=== PATIENT | female | born 1985 | race Caucasian/White ===

== ENCOUNTER 2018-12-05 14:21 | Day surgery (SDC) | payer OTHER ==
[2018-12-05 15:20] VITALS: BMI 28.1
[2018-12-05 15:22] VITALS: BP 128/85; TEMP 99.2
--- NOTE | 2018-12-05 18:02 | PDOC.FPRHP ---
- Allergies/Adverse Reactions Allergies Allergy/AdvReac Type Severity Reaction Status Date / Time No Known Allergies Allergy Unverified 12/05/18 15:07 - Home Medications Medication Instructions Recorded Confirmed Type Lactobacillus Acidophilus 1 capsule PO DAILY 12/05/18 12/05/18 History [Probiotic] Vit,Calc76/Iron/Folic 1 tablet PO DAILY 12/05/18 12/05/18 History [Prenatabs Rx Tablet] - History PMHx: PSHx: FHx: Social: - Vital signs BP: [] HR: [] RR: [] Tmax: [] Pox: []% on [] Wt: [] FMR H&P: Upper Level - Plan Date/Time: 12/05/18 1802 I, [], have evaluated this patient and agree with findings/plan as outlined by manager internet retails sales resident. Pertinent changes/additions are listed here.
--- NOTE | 2018-12-05 18:07 | PDOC.FPROB ---
FMR OB H&P: HPI - History of Present Illness Chief Complaint: Vaginal bleeding Indentification: 32 year old at 38.1 wks History of Present Illness: 32 year old at 38.1 wks presents with vaginal bleeding. She states she was using the restroom when she felt like she was leaking fluid. Patient states that when she looked in the toilet, she saw blood. She also notes that she soaked through a pad. The bleeding started at 13:30. Patient endorses recent sexual intercourse, last night. She denies vaginal discharge, contractions. Patient endorses abdominal cramping, similar to how a period feels. Patient endorses movement. Primary Care Physician: Dr. 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 She is on Adderall for ADHD and tested positive for amphetamines on UDS. FMR OB H&P: Medications - Current Home Medications: Medication Instructions Recorded Confirmed Type Lactobacillus Acidophilus 1 capsule PO DAILY 12/05/18 12/05/18 History [Probiotic] Vit,Calc76/Iron/Folic 1 tablet PO DAILY 12/05/18 12/05/18 History [Prenatabs Rx Tablet] Allergies/Adverse Reactions: Allergies Allergy/AdvReac Type Severity Reaction Status Date / Time No Known Allergies Allergy Unverified 12/05/18 15:07 FMR OB H&P: ROS - Review of Systems General: denies: fever/chills, weight/appetite/sleep changes Eyes: denies: vision changes ENT: denies: nasal congestion, sore throat Cardiovascular: denies: chest pain, palpitation, edema Respiratory: denies: cough, congestion, shortness of breath Gastrointestinal: reports: cramping. denies: abdominal pain, nausea, vomiting Genitourinary (Female): reports: vaginal bleeding. denies: dysuria, vaginal pain, contractions Musculoskeletal: denies: pain, stiffness Neurologic: denies: numbness, syncope, weakness Integumentary: denies: itching, rash, lesions Hematologic/Lymphatic: denies: prolonged or excessive bleeding Psychological: denies: depression, anxiety FMR OB H&P: Vital Signs - Maternal Vital signs: Vital Signs - First Documented Temp Pulse Resp BP 99.2 F 103 H 18 128/85 12/05/18 14:42 12/05/18 14:42 12/05/18 14:42 12/05/18 14:42 - Heart Tones Baseline: 130 Variability: moderate Acceleration: present Deceleration: absent Category: category 1 [place] contractions every: Irritability, irregular contractions FMR OB H&P: Physical Exam - Physical Exam General: NAD, awake, alert and oriented HEENT: MMM, grossly normal vision, grossly normal hearing Heart: RRR General: no respiratory distress Abdomen: soft, gravid, non-tender Musculoskeletal: pulses present Neurological: no tremor, no focal deficit Skin: no rash Lymphatic: no unusual bruising or bleeding, no purpura Psychiatric: intact recent and remote memory, good judgement and insight, normal mood and affect - Pelvic Exam Deviation from normal: minimal amount of dark red blood near cervical os and in vagina SVE: closed/thick/high FMR OB H&P: A/P - Problem List (1) Vaginal bleeding during , antepartum Status: Acute Code(s): O46.90 - ANTEPARTUM HEMORRHAGE, UNSPECIFIED, UNSPECIFIED TRIMESTER (2) Term Status: Acute Code(s): Z34.90 - ENCNTR FOR SUPRVSN OF NORMAL , UNSP, UNSP TRIMESTER (3) ADHD Status: Acute (4) Asthma Status: Acute Code(s): J45.909 - UNSPECIFIED ASTHMA, UNCOMPLICATED Disposition: 32 year old at 38.1 wks presents with vaginal bleeding Vaginal bleeding - Term sIUP - No active bleeding on sterile speculum exam - No evidence of pooling to suggest ROM - Recent sexual intercourse which is likely cause - Closed/thick/high, soft, posterior - Hx of placenta previa with documented resolution on 30 wk sono (2.29 cm from os) - Category I strip, no concerns for compromise or distress - Mild amount of cramping, but no abdominal pain, contractions, or firm uterus; low suspicious for abruption - Amnisure not helpful given the vaginal bleeding. TIUP - 38.1 wks - No complications - G1 - Cervix closed; patient not in labor at this time ADHD - On Adderall during , UDS positive Asthma - Avoid hemabate PP Dispo: D/c home with return precautions. Discussion: Date/Time: 12/05/181804 This H&P was discussed with Dr. Mcguire who agrees with the above documentation and plan. Signature: Liyah Johnson, PGY-3 Addendum - Attending - Attending Attestation Date/Time: 12/05/182226 I personally evaluated the patient and discussed the management with Dr. Johnson. I agree with the History, Examination, Assessment and Plan documented above.
== END 2018-12-05 17:30 | disposition home health service (06) ==
LOC: L&D/OP 14:21
PROVIDERS: ATTEND Obstetrics & Gynecology
DX: O46.93 Antepartum hemorrhage, unspecified, third trimester (principal); O99.343 Other mental disorders complicating pregnancy, third trimester; F90.9 Attention-deficit hyperactivity disorder, unspecified type; O99.513 Diseases of the respiratory system complicating pregnancy, third trimester; J45.909 Unspecified asthma, uncomplicated; Z3A.38 38 weeks gestation of pregnancy; Z79.899 Other long term (current) drug therapy

== ENCOUNTER 2018-12-06 22:15 | Inpatient (IN) | payer OTHER ==
[2018-12-06 22:49] VITALS: BMI 28.1
[2018-12-06] MEDS ORDERED: Ibuprofen 800 MG TAB PO PRN (23:13)
[2018-12-06] MEDS ORDERED: NS / Oxytocin 40 units/1000ml 1,000 ML IV PRN (23:13)
[2018-12-06] MEDS ORDERED: hydrALAZINE 20 MG/ML VIAL SLOW IVP PRN (23:13)
[2018-12-06] MEDS ORDERED: Lidocaine 1% (PF) 30 ML VIAL SC PRN (23:13)
[2018-12-06] MEDS ORDERED: Promethazine HCl 25 MG/ML VIAL IM PRN (23:13)
[2018-12-06] MEDS ORDERED: HYDROcodone/Acetaminophen 5/325 mg Tablet PO PRN ×2 (23:13)
[2018-12-06] MEDS ORDERED: Ondansetron PF 4 MG/2 ML Vial IVP PRN (23:13)
[2018-12-06] MEDS ORDERED: Butorphanol Tartrate 1 MG/ML VIAL SLOW IVP PRN (23:13)
--- NOTE | 2018-12-06 23:17 | PDOC.LDHP ---
Labor and Delivery H&P Chief complaint: other (Vag Bleed) HPI: Here for Vag Bleed care: [place] 32 yo G1Po with EDC 12/18/18...38 weeks, with vag bleed yesterday and today. Seen yesterday in L&D. Was closed yesterday, no trauma, passed small clots at home. Good FM, no DM, no HTN Review Of Systems: As per HPI Current gestational age (weeks): 38 Due date: 12/18/18 Dating criteria: last menstrual period Grav: 1 Current complications: none Abnormal US findings: No Current medications: pre- vitamins Previous surgical history: other (Wrists) Allergies/Adverse Reactions: Allergies Allergy/AdvReac Type Severity Reaction Status Date / Time No Known Allergies Allergy Verified 12/06/18 22:46 Social history: none - Physical Exam Vital signs reviewed and normal: yes (139/90...160/90) General: NAD Heart: RRR Lungs: CTAB Abdomen: gravid Extremeties: no edema FHT: category 1 [place] contractions every: Every 3 minutes - Assessment L&D Assessment: term patient in labor (Vag Bleed x 2 days at 38 weeks, PIH with decels...r/o marginal separation) - Plan Plan: admit to L&D, GBS antibiotic prophylaxis, informed consent obtained, anesthesia consult for pain management, other (Possible abruption reviewed, we will keep and likely proceed with IOL. T&C as well. At bedside now. Blood type RH Pos)
--- NOTE | 2018-12-06 23:25 | PDOC.EVN ---
Event Note - Event Note Event Note: Reviewed BPs with Jennifer...will follow for now. may need mag sulfate if persistent
[2018-12-06] MEDS ORDERED: Calcium Gluc 4.6 MEQ/10 ML (100 MG/ML) SLOW IVP PRN (23:30)
[2018-12-06] MEDS ORDERED: Penicillin G Potassium 5 MILL.UNITS in Sodium Chloride 0.9% 100 ML IVPB SCH (23:30)
--- NOTE | 2018-12-06 23:30 | PDOC.EVN ---
Event Note - Event Note Event Note: CX per RN with and Homer in room: / BP 170/94...start Mag. D/W patient
[2018-12-06] MEDS ORDERED: Magnesium Sulfate 20 gm/500 ml 20 GM/500 ML BAG ONE (23:32)
[2018-12-06 23:33] LABS: #Eosinphils 0.3 thou/uL (0.0-0.7); #Neutrophils 7.5 thou/uL (1.40-6.50); %Basophils 0.3 % (0.0-1.0); %Eosinophils 2.8 % (0.0-10.0); %Monocytes 8.5 % (0.0-10.0); %Neutrophils 63.5 % (42.0-75.0); Hemoglobin 13.2 g/dL (12.0-16.0); Mean Corpuscular HGB CONC 34.8 g/dL (32.0-36.0); Mean Corpuscular Hemoglobin 32.2 pg (27.0-31.0); Mean Corpuscular Volume 92.6 fL (78.0-98.0); Mean Platelet Volume 6.6 fL (7.4-10.4); Platelet Count 249 thou/uL (130-400); RBC Distribution Width 11.6 % (11.5-14.5); Red Blood Cell (RBC) Count 4.11 mill/uL (4.20-5.40); White Blood Cell (WBC) Count 11.8 thou/uL (4.8-10.8)
[2018-12-06] MEDS ORDERED: Magnesium Sulfate 20 gm/500 ml 20 GM/500 ML BAG IVPB SCH (23:45)
[2018-12-06] MEDS ORDERED: Magnesium Sulfate 20 GM/WATER 500 ML BAG IVPB SCH (23:45)
[2018-12-06 23:47] LABS: ALT (SGPT) 11 U/L (8-55); AST (SGOT) 16 U/L (5-34); Albumin 3.8 g/dL (3.5-5.0); Alkaline Phosphatase 183 U/L (40-110); Anion Gap 12 mmol/L (10-20); BUN (Urea Nitrogen) 8 mg/dL (7.0-18.7); Bilirubin, Total 0.3 mg/dL (0.2-1.2); Calc. Creatinine Clearance 168 mL/min (70-130); Carbon Dioxide 25 mmol/L (22-29); Chloride 104 mmol/L (98-107); Estimated GFR-MDRD Greater than 90; Globulin 2.9 g/dL (2.4-3.5); Glucose 89 mg/dL (70-105); Potassium 3.8 mmol/L (3.5-5.1); Protein, Total 6.7 g/dL (6.0-8.3); Sodium 137 mmol/L (136-145)
[2018-12-06] MEDS: Misoprostol 100 MCG TAB VAG SCH (23:54)
[2018-12-07 00:05] LABS: Hemoglobin 13.3 g/dL (12.0-16.0); Mean Corpuscular HGB CONC 34.6 g/dL (32.0-36.0); Mean Corpuscular Volume 92.6 fL (78.0-98.0); Mean Platelet Volume 6.9 fL (7.4-10.4); Platelet Count 247 thou/uL (130-400); RBC Distribution Width 11.7 % (11.5-14.5); Red Blood Cell (RBC) Count 4.17 mill/uL (4.20-5.40); White Blood Cell (WBC) Count 12.4 thou/uL (4.8-10.8)
[2018-12-07] MEDS ORDERED: NIFEdipine 10 MG CAP ONE (00:07)
--- NOTE | 2018-12-07 00:10 | PDOC.EVN ---
Event Note - Event Note Event Note: Requiring procardia (ACOG protocol) for urgent HTN
[2018-12-07 00:36] LABS: Creatinine, Urine 37.53 mg/dL (47-110)
[2018-12-07 00:42] LABS: Syphilis Antibody Nonreactive (Nonreactive); Syphilis Antibody Index 0.05 S/CO (<1.00 Non-Reactive)
[2018-12-07 00:43] LABS: HBSAg Index 0.15 S/CO (0-0.99); HIV (1/2) Antibody/Antigen Non-Reactive (NonReactive); HIV 1/2 INDEX 0.06 S/CO (<1.00); Hep B Surf Ag Non-Reactive S/CO (NonReactive)
[2018-12-07] MEDS ORDERED: NIFEdipine 10 MG CAP PO SCH (00:45)
[2018-12-07] MEDS: Penicillin G 2.5 MILL.units 2.5 MILL.UNITS in Premix Bag 1 BAG IVPB SCH ×4 (05:10→18:05)
[2018-12-07] MEDS: Misoprostol 100 MCG TAB VAG SCH ×4 (05:14→17:52)
--- NOTE | 2018-12-07 06:10 | PDOC.LDPN ---
Labor & Delivery Progress Note - Objective Vital signs reviewed and normal: yes (pressures 107/58 this AM) General: NAD Uterine fundus: non tender FHT: category 1 [place] contractions every: few - Assessment (1) PIH ( induced hypertension) Code(s): O13.9 - GESTATIONAL HTN W/O SIGNIFICANT PROTEINURIA, UNSP TRIMESTER Current Visit: Yes Status: Acute (2) Asthma Code(s): J45.909 - UNSPECIFIED ASTHMA, UNCOMPLICATED Current Visit: No Status: Acute (3) Term Code(s): Z34.90 - ENCNTR FOR SUPRVSN OF NORMAL , UNSP, UNSP TRIMESTER Current Visit: No Status: Acute (4) Vaginal bleeding during , antepartum Code(s): O46.90 - ANTEPARTUM HEMORRHAGE, UNSPECIFIED, UNSPECIFIED TRIMESTER Current Visit: No Status: Acute Plan: continue plan of care (cytotec #2 given at 0515. Fibrinogen was normal. Urine P/CR was.5. We discussed (at bedside now) continued trial. May need CS if no progress or labor start after 24 hrs. For now, no further vag bleed and appears stable. DX: preeclampsia with poss stable marginal separation...for delivery)
[2018-12-07] MEDS: Lactated Ringer's 1,000 ML IV SCH ×2 (13:08→17:50)
[2018-12-07] MEDS ORDERED: Ondansetron PF 4 MG/2 ML Vial ONE ×2 (15:18→15:41)
[2018-12-07] MEDS ORDERED: PHENYLEPHRINE-NS 100 MCG/ML 10 ML SYRINGE ONE ×2 (15:18→15:41)
[2018-12-07] MEDS ORDERED: ePHEDrine 50 MG/ML VIAL ONE (15:18)
[2018-12-07] MEDS ORDERED: Bicitra 30 ML UDCUP ONE (15:26)
[2018-12-07] MEDS ORDERED: Bicitra 30 ML UDCUP PO SCH (15:30)
[2018-12-07] MEDS ORDERED: Azithromycin 500 MG in Sodium Chloride 0.9% 250 ML 250 ML IVPB SCH (15:30)
[2018-12-07] MEDS ORDERED: CEFAZOLIN 2 GM in Premix Bag 1 BAG IVPB SCH (15:30)
--- NOTE | 2018-12-07 15:32 | PDOC.EVN ---
Event Note - Event Note Event Note: Rechecked 3 hours after 4th cytotec placed and SVE 03/07/, unchanged from prior to attempted induction. Due to low lying placenta and suspected marginal abruption, options are limited and balloon is unavailable. Cervix still unfavorable. Discussed with Dr. Turcios and who agrees with recommended primary LTCS for failed induction of labor. This was discussed with the patient who agrees to proceed with c/s. Anesthesia notified.
[2018-12-07] MEDS ORDERED: MORPHINE 5 MG/10 ML PF VIAL ONE (15:40)
[2018-12-07] MEDS ORDERED: ePHEDrine/0.9% NaCl/PF SYRINGE 50 mg/10 ml ONE (15:41)
[2018-12-07] MEDS ORDERED: Oxytocin 10 UNITS/ML VIAL ONE ×2 (15:41→17:27)
[2018-12-07] MEDS ORDERED: Ropivacaine 0.2% 550 ML 750 ML NERVE BLCK SCH (16:30)
[2018-12-07] MEDS ORDERED: Misoprostol 200 MCG TAB ONE (16:45)
[2018-12-07] MEDS ORDERED: Ropivacaine HCl/PF 750 ML in Premix Bag 1 BAG NERVE BLCK SCH (16:45)
[2018-12-07] MEDS ORDERED: Tranexamic Acid 1,000 MG/10 ML VIAL ONE (16:45)
[2018-12-07] MEDS ORDERED: Lidocaine 1% PF 5 ML VIAL ONE (16:53)
[2018-12-07] MEDS ORDERED: Ketorolac Tromethamine 30 MG/ML VIAL IVP PRN (17:23)
[2018-12-07] MEDS ORDERED: L&D-Morphine 4 MG/ML VIAL SLOW IVP PRN (17:23)
[2018-12-07] MEDS ORDERED: HYDROmorphone 2 MG/ML VIAL SLOW IVP PRN (17:23)
[2018-12-07] MEDS ORDERED: Naloxone HCl 0.4 mg/ml Vial IVP PRN ×2 (17:23)
[2018-12-07] MEDS ORDERED: diphenhydrAMINE 50 MG/ML VIAL IVP PRN (17:23)
[2018-12-07] MEDS ORDERED: Promethazine HCl 25 MG/ML VIAL IM PRN ×2 (17:23→20:20)
[2018-12-07] MEDS ORDERED: Ondansetron PF 4 MG/2 ML Vial IVP PRN ×2 (17:23→20:20)
[2018-12-07] MEDS ORDERED: Promethazine HCl 25 MG SUPP PR PRN (17:23)
[2018-12-07] MEDS ORDERED: Naloxone HCl 0.4 mg/ml Vial IV PRN (17:23)
[2018-12-07] MEDS ORDERED: Meperidine HCl/PF 25 MG/ML VIAL SLOW IVP PRN (17:23)
[2018-12-07] MEDS ORDERED: Ondansetron HCl/PF 4 MG/2 ML Vial IVP PRN (17:23)
[2018-12-07] MEDS ORDERED: Ketorolac Tromethamine 30 MG/ML VIAL IVP SCH (17:30)
[2018-12-07] MEDS ORDERED: Communication Order-Pharmacy FS SCH (17:30)
--- NOTE | 2018-12-07 17:33 | PDOC.OPDEL ---
OB Operative/Delivery Note Delivery Dr/Surgeon: Tam Assist: Riky Mcguire Pre-Delivery Diagnosis: other (failed IOL, severe preeclampsia, placental abruption) Weeks gestation: 38 Anesthesia: spinal - Additional Findings/Plan Placenta delivered: manual removal findings: low transverse hysterotomy without extension, normal uterus ( atony relieved w cytotec, pitocin and TXA), normal tubes, normal ovaries Estimated blood loss: 1000ml Compilations/Other Findings: uterine atony relieved w TXA, pitocin, massage and cytotec Post delivery plan: routine recovery
[2018-12-07] MEDS ORDERED: Misoprostol 200 MCG TAB PR SCH (18:00)
[2018-12-07] MEDS ORDERED: Acetaminophen 325 MG TAB PO PRN (20:20)
[2018-12-07] MEDS ORDERED: Simethicone Chewable 80 MG TAB PO PRN (20:20)
[2018-12-07] MEDS ORDERED: Magnesium Sulfate 20 gm/500 ml 20 GM/500 ML BAG IVPB SCH (20:20)
[2018-12-07] MEDS ORDERED: Bisacodyl 10 MG SUPP PR PRN (20:20)
[2018-12-07] MEDS ORDERED: Lanolin Ointment 7 GM TUBE TOP PRN (20:20)
[2018-12-07] MEDS ORDERED: Calcium Gluconate 4.6 MEQ in Sodium Chloride 0.9% 100 ML IVPB PRN (20:20)
[2018-12-07] MEDS ORDERED: HYDROcodone/Acetaminophen 5/325 mg Tablet PO PRN ×2 (20:20)
[2018-12-07] MEDS ORDERED: Zolpidem Tartrate 5 MG TAB PO PRN (20:20)
[2018-12-07] MEDS ORDERED: Meperidine HCl/PF 25 MG/ML VIAL IM PRN (20:20)
[2018-12-07] MEDS ORDERED: NS / Oxytocin 40 units/1000ml 1,000 ML IV SCH (20:20)
[2018-12-07] MEDS ORDERED: diphenhydrAMINE 25 MG CAP PO PRN (20:20)
[2018-12-07] MEDS ORDERED: hydrALAZINE 20 MG/ML VIAL SLOW IVP PRN (20:20)
[2018-12-07] MEDS ORDERED: Adacel (T-DAP) 0.5 ML SYRINGE IM ONE (20:45)
[2018-12-07] MEDS: Docusate Calcium (SURFAK) 240 MG CAP PO SCH (23:52)
[2018-12-07] MEDS: Ibuprofen 800 MG TAB PO SCH (23:52)
[2018-12-07] MEDS: Ferrous Sulfate 325 MG TAB PO SCH (23:52)
[2018-12-08] MEDS ORDERED: Butorphanol Tartrate 1 MG/ML VIAL SLOW IVP PRN (05:30)
[2018-12-08] MEDS: Ibuprofen 800 MG TAB PO SCH ×3 (06:00→22:43)
--- NOTE | 2018-12-08 08:04 | PDOC.PP ---
Post Progress Note Post Day #: 1 Subjective: pain controlled w IBU and ONQ, nausea overnight, feeling well now PO intake tolerated: yes Flatus: yes Ambulation: yes Weight Weight 180 lb BP normal range - Physical Examination General: NAD Respiratory: non-labored breathing Abdominal: no distention, appropriately TTP Fundus firm & at: below umb Skin: CS incision dry & intact (dressing on and clean) Neurological: no gross focal deficits Psychiatric: A&Ox3, normal affect Result Diagrams: 12/06/18 23:42 12/06/18 23:18 Additional Labs: Post Labs Blood Type O POSITIVE 12/07/18 00:03 Hep Bs Antigen Non-Reactive S/CO (NonReactive) 12/06/18 23:42 - Assessment/Plan POD1 sp 1CS for falied IOL w placental abruption and severe PIH. On magnesium for PP seizure prophylaxis. BP WNL range. AM lab ordered but not resulted. Plan for DC magnesium later today and advance orders.
[2018-12-08 08:29] LABS: Mean Corpuscular HGB CONC 35.4 g/dL (32.0-36.0); Mean Corpuscular Hemoglobin 32.5 pg (27.0-31.0); Mean Corpuscular Volume 91.9 fL (78.0-98.0); Platelet Count 182 thou/uL (130-400); RBC Distribution Width 11.8 % (11.5-14.5); Red Blood Cell (RBC) Count 3.39 mill/uL (4.20-5.40); White Blood Cell (WBC) Count 11.9 thou/uL (4.8-10.8)
[2018-12-08] MEDS ORDERED: Prenatal Vitamin 1 TAB PO SCH (09:00)
[2018-12-08] MEDS: Docusate Calcium (SURFAK) 240 MG CAP PO SCH ×2 (09:38→22:44)
[2018-12-08] MEDS: Ferrous Sulfate 325 MG TAB PO SCH ×2 (09:38→22:44)
--- NOTE | 2018-12-08 12:07 | OP ---
DATE OF PROCEDURE: 12/07/2018 PREOPERATIVE DIAGNOSES: 1. Suspected placental abruption. 2. Thirty-eight weeks gestation. 3. Failed induction of labor. 4. Severe preeclampsia. POSTOPERATIVE DIAGNOSES: 1. Suspected placental abruption. 2. Thirty-eight weeks gestation. 3. Failed induction of labor. 4. Severe preeclampsia. 5. Status post primary low transverse section. PROCEDURES PERFORMED: Primary low transverse section with placement of ON-Q catheter nerve block and pump. MUD JACK NOZZLE WORKER: Gemini Mcguire MD. ANESTHESIA: Spinal. COMPLICATIONS: None. ESTIMATED BLOOD LOSS: 1000 mL. OPERATIVE FINDINGS: 1. Low-transverse hysterotomy without extension. 2. Retroplacental clot noted. 3. Blood-tinged amniotic fluid. 4. Male delivered through hysterotomy from vertex presentation. Apgars and weight pending at the time of this dictation. 5. Normal-appearing uterus, tubes, and ovaries bilaterally. 6. Uterine atony, resolved with IV Pitocin, IV tranexamic acid, and intrauterine Cytotec placement. INDICATIONS FOR PROCEDURE: Ms. Jennifer Kelly was admitted on 12/06/2018 by the OB hospitalist team after presenting with vaginal bleeding. The heart tracing was reassuring at that time, and the patient was counseled for induction. During her induction, she was diagnosed with severe preeclampsia and started on magnesium for seizure prophylaxis. She received 4 doses of Cytotec with no cervical change noted and was diagnosed with a failed induction on hospital day #2. DESCRIPTION OF PROCEDURE: The patient was taken back to the OR with IV fluids running. When she was in the OR, she received spinal anesthesia. Once the patient was asleep, she was placed in dorsal supine position with a left lateral tilt. The abdomen was prepped and draped in normal fashion for section. Surgeons were gowned and gloved. Anesthesia was tested and found to be adequate. A Pfannenstiel skin incision was made with a scalpel. The subcutaneous tissue was incised with a scalpel and Bovie cauterization until the fascia was reached. Once the fascia was reached, it was incised in the midline and extended superolaterally with the curved Cheney scissors. Roger clamps were then placed at the superior border of the fascia, which was sharply and bluntly dissected off the rectus abdominis muscles in similar fashion. Roger clamps were placed at the inferior border of the fascia, which was dissected down towards the level of pubic symphysis. The rectus muscles were incised in the midline with a scalpel. The peritoneum was bluntly entered and stretched laterally. An Alex O retractor was placed into the peritoneal cavity for retraction, visualization, and protection of the wound. A bladder flap was created and the bladder was dissected away from the planned hysterotomy site. A low-transverse hysterotomy was made with a scalpel. The hysterotomy was extended using the Dillon maneuver. Dark clot was noted between the placenta and the uterus. An amniotomy was performed with blood-tinged fluid noted. The was then delivered through the hysterotomy without difficulty. The nose and mouth were suctioned. The cord was doubly clamped and cut. The was handed off to special care nurses in attendance. Minimal cord blood was available for collection. The placenta was delivered. The uterus was exteriorized, massaged, and cleaned of clot and debris with a clean lap sponge. The uterus was returned to the abdominal cavity, noted to be atonic. 1 g of IV tranexamic acid was ordered and administered as well as 600 mcg of Cytotec which were placed within the uterus. Hysterotomy was closed in a running locked fashion with Monocryl suture. The right corner of the hysterotomy was noted to have a small area of bleeding, which was controlled with one [id number] suture with the hysterotomy noted to be hemostatic, and the uterus noted to be firm. The hysterotomy and paracolic gutters were irrigated and suctioned dry. Hysterotomy was inspected again and no bleeding was noted and the uterus was noted to be firm. The Alex retractor was removed from the abdominal cavity. The peritoneum was reapproximated with plain gut suture. Two ON-Q catheter tips were directed through the skin, subcutaneous tissue, and fascia and directed down towards the contralateral corners and placed between the rectus muscle and fascia. They were primed with lidocaine. The rectus muscle was inspected and no areas of bleeding were noted. The fascia was reapproximated with PDS suture from corner to corner. The subcutaneous tissue was then irrigated and dried. No areas of bleeding were noted. Subcutaneous tissue was reapproximated with plain gut suture. The skin was then closed with 4-0 Monocryl and dressed with Dermabond dressing. Dermabond was placed over the 2 ON-Q catheter insertion sites at the skin. Sterile dressing was applied to the ON-Q catheters bilaterally. The uterus massaged, firm, and 3cm below the umbilicus, the end of the section. The patient tolerated the procedure well. She will be transferred back to her labor and delivery room, where she will continue magnesium for seizure prophylaxis . The baby was admitted to the Intensive Care Unit for monitoring and evaluation. There were no complications. Job ID: [id number] MTDD
[2018-12-08] MEDS ORDERED: Bisacodyl 10 MG SUPP PR PRN (13:17)
[2018-12-08] MEDS ORDERED: Acetaminophen 325 MG TAB PO PRN (13:17)
[2018-12-08] MEDS ORDERED: Ondansetron PF 4 MG/2 ML Vial IVP PRN (13:17)
[2018-12-08] MEDS ORDERED: hydrALAZINE 20 MG/ML VIAL SLOW IVP PRN (13:17)
[2018-12-08] MEDS ORDERED: Lanolin Ointment 7 GM TUBE TOP PRN (13:17)
[2018-12-08] MEDS ORDERED: diphenhydrAMINE 25 MG CAP PO PRN (13:17)
[2018-12-08] MEDS: Misoprostol 100 MCG TAB VAG SCH (15:26)
[2018-12-08] MEDS: Simethicone Chewable 80 MG TAB PO PRN (20:20)
[2018-12-08] MEDS: HYDROcodone/Acetaminophen 5/325 mg Tablet PO PRN (20:20)
[2018-12-09] MEDS: HYDROcodone/Acetaminophen 5/325 mg Tablet PO PRN ×5 (04:30→21:08)
[2018-12-09] MEDS: Simethicone Chewable 80 MG TAB PO PRN ×3 (04:31→16:33)
[2018-12-09] MEDS: Ibuprofen 800 MG TAB PO SCH ×3 (06:36→21:08)
[2018-12-09] MEDS: Docusate Calcium (SURFAK) 240 MG CAP PO SCH ×2 (08:40→21:08)
[2018-12-09] MEDS: Prenatal Vitamin 1 TAB PO SCH (08:40)
[2018-12-09] MEDS: Ferrous Sulfate 325 MG TAB PO SCH ×2 (08:50→21:13)
[2018-12-09] MEDS ORDERED: Adacel (T-DAP) 0.5 ML SYRINGE IM ONE (09:00)
--- NOTE | 2018-12-09 11:31 | PDOC.PP ---
Post Progress Note Post Day #: 2 Subjective: doing well, baby at bedside, nursing well, tolerating regular diet, no PIH sx PO intake tolerated: yes Flatus: yes Ambulation: yes Vital Signs (12 hours) Temp Pulse Resp BP Pulse Ox 12/09/18 08:12 99.0 F 76 20 120/64 96 12/09/18 04:26 98.5 F 75 18 134/80 12/09/18 00:48 98.6 F 80 18 130/67 Weight Weight 180 lb - Physical Examination General: NAD Respiratory: non-labored breathing Abdominal: no distention Fundus firm & at: below umb Skin: CS incision dry & intact (leaking from ONQ catheters) Neurological: no gross focal deficits Psychiatric: A&Ox3, normal affect Result Diagrams: 12/08/18 08:22 12/06/18 23:18 Additional Labs: Post Labs Blood Type O POSITIVE 12/07/18 00:03 Hep Bs Antigen Non-Reactive S/CO (NonReactive) 12/06/18 23:42 (1) delivery delivered Code(s): O82 - ENCOUNTER FOR DELIVERY WITHOUT INDICATION Status: Acute (2) 38 weeks gestation of Code(s): Z3A.38 - 38 WEEKS GESTATION OF Status: Acute (3) Severe preeclampsia Code(s): O14.10 - SEVERE PRE-ECLAMPSIA, UNSPECIFIED TRIMESTER Status: Acute - Assessment/Plan POD2, sp 1CS for failed IOL for placental abruption. Off magnesium with normal BP, will DC OnQ today for leaking. Possible DC tomorrow.
--- NOTE | 2018-12-09 12:58 | OP ---
DATE OF PROCEDURE: 12/07/2018 ADDENDUM: I was present and scrubbed to assist the primary low-transverse for failed induction of labor with Dr. Joe Turcios. Please see her note for full details. Job ID: [id number]
[2018-12-10] MEDS: HYDROcodone/Acetaminophen 5/325 mg Tablet PO PRN ×3 (04:16→12:52)
[2018-12-10] MEDS: Ibuprofen 800 MG TAB PO SCH (04:16)
[2018-12-10 08:26] VITALS: BP 113/65; TEMP 98.4
--- NOTE | 2018-12-10 08:36 | PDOC.PP ---
Post Progress Note Post Day #: 3 Subjective: doing well, minimal discomfort and controlled w meds, tolerating diet, baby nursing well PO intake tolerated: yes Flatus: yes Ambulation: yes Vital Signs (12 hours) Temp Pulse Resp BP Pulse Ox 12/10/18 08:26 98.4 F 74 20 113/65 99 12/10/18 01:45 98.0 F 61 20 128/82 Weight Weight 180 lb - Physical Examination General: NAD Respiratory: non-labored breathing Abdominal: no distention Skin: CS incision dry & intact Neurological: no gross focal deficits Psychiatric: A&Ox3, normal affect Result Diagrams: 12/08/18 08:22 12/06/18 23:18 Additional Labs: Post Labs Blood Type O POSITIVE 12/07/18 00:03 Hep Bs Antigen Non-Reactive S/CO (NonReactive) 12/06/18 23:42 (1) delivery delivered Code(s): O82 - ENCOUNTER FOR DELIVERY WITHOUT INDICATION Status: Acute (2) 38 weeks gestation of Code(s): Z3A.38 - 38 WEEKS GESTATION OF Status: Acute (3) Severe preeclampsia Code(s): O14.10 - SEVERE PRE-ECLAMPSIA, UNSPECIFIED TRIMESTER Status: Acute - Assessment/Plan POD3, plan for DC today after 1CS for failed IOL w placental abruption. SP magnesium recovery, normal BP PP.
[2018-12-10] MEDS: Prenatal Vitamin 1 TAB PO SCH (08:48)
[2018-12-10] MEDS: Docusate Calcium (SURFAK) 240 MG CAP PO SCH (08:48)
[2018-12-10] MEDS: Ferrous Sulfate 325 MG TAB PO SCH (09:08)
== END 2018-12-10 13:05 | disposition home or self-care (01) | DRG 787 ==
LOC: L&D/OP 22:15 → L&D 23:35 → 3SW 12-08 14:30
PROVIDERS: ADMIT Obstetrics & Gynecology; ATTEND Obstetrics & Gynecology
PROC: 10D00Z1 Extraction of Products of Conception, Low, Open Approach (ICD-10-PCS; principal; 2018-12-07)
PROC: 10907ZC Drainage of Amniotic Fluid, Therapeutic from Products of Conception, Via Natural or Artificial Opening (ICD-10-PCS; 2018-12-07)
PROC: 3E0P7VZ Introduction of Hormone into Female Reproductive, Via Natural or Artificial Opening (ICD-10-PCS; 2018-12-07)
PROC: 3E033VJ Introduction of Other Hormone into Peripheral Vein, Percutaneous Approach (ICD-10-PCS; 2018-12-07)
PROC: 3E0234Z Introduction of Serum, Toxoid and Vaccine into Muscle, Percutaneous Approach (ICD-10-PCS; 2018-12-09)
DX: O45.93 Premature separation of placenta, unspecified, third trimester (principal); O44.43 Low lying placenta NOS or without hemorrhage, third trimester; O14.14 Severe pre-eclampsia complicating childbirth; O13.4 Gestational [pregnancy-induced] hypertension without significant proteinuria, complicating childbirth; O76 Abnormality in fetal heart rate and rhythm complicating labor and delivery; O61.0 Failed medical induction of labor; Z3A.38 38 weeks gestation of pregnancy; Z37.0 Single live birth; Z23 Encounter for immunization; O75.89 Other specified complications of labor and delivery
CPT/HCPCS: 36415; 51702; 80053; 82570; 83735; 84156; 85025; 85027; 85384; 86780; 86850; 86900; 86901; 87340; 87389; 88307; 99283; 99285; J0690; J2001; J2274; J2405; J2540; J2550; J2590; J2795; J3475; J3490